=== PATIENT | male | born 1950 | race Caucasian/White ===

== ENCOUNTER → 2020-07-01 | Outpatient (CLI) | payer OTHER, MEDICARE ==
[~2020-07-01] MED LIST: ACCUPRIL PO; ADULT LOW DOSE81 MG PO; ATORVASTATIN CA40 MG PO; BYSTOLIC 5 MG5 M1 PO; CENTRUM SILVER1 EAC4 PO; FISH OIL 1,001000 M2 PO; KEFLEX500 MG PO; LOVASTATIN PO; PERCOCET 5-3251 EACH PO; VITAMIN B-12500 MCG PO; VITAMIN B-625 MG PO; VITAMIN D3400 UNI1 PO; VITAMINC500 PO; ZOFRAN ODT4 MG PO
== END ==
LOC: SJCVC 09:43
PROVIDERS: ATTEND Internal Medicine Cardiovascular Disease
DX: Z45.02 Encounter for adjustment and management of automatic implantable cardiac defibrillator (principal); I25.810 Atherosclerosis of coronary artery bypass graft(s) without angina pectoris; I42.9 Cardiomyopathy, unspecified; I10 Essential (primary) hypertension; E78.5 Hyperlipidemia, unspecified; Z95.1 Presence of aortocoronary bypass graft; Z95.810 Presence of automatic (implantable) cardiac defibrillator; Z79.899 Other long term (current) drug therapy

== ENCOUNTER → 2021-03-31 | Outpatient (CLI) | payer OTHER, MEDICARE | LOC: SJCVCIMAG 07:28 | PROVIDERS: ATTEND Internal Medicine Cardiovascular Disease | DX: I08.3 Combined rheumatic disorders of mitral, aortic and tricuspid valves (principal); I25.10 Atherosclerotic heart disease of native coronary artery without angina pectoris; I42.9 Cardiomyopathy, unspecified; E78.5 Hyperlipidemia, unspecified; E78.00 Pure hypercholesterolemia, unspecified; I50.22 Chronic systolic (congestive) heart failure; Z82.49 Family history of ischemic heart disease and other diseases of the circulatory system; Z95.0 Presence of cardiac pacemaker; Z95.1 Presence of aortocoronary bypass graft; Z79.82 Long term (current) use of aspirin; Z79.899 Other long term (current) drug therapy ==

== ENCOUNTER → 2021-05-26 | Outpatient (CLI) | payer OTHER, MEDICARE | LOC: SJCVC 12:44 | PROVIDERS: ATTEND Internal Medicine Cardiovascular Disease | DX: I25.5 Ischemic cardiomyopathy (principal); I11.0 Hypertensive heart disease with heart failure; I50.22 Chronic systolic (congestive) heart failure; I25.10 Atherosclerotic heart disease of native coronary artery without angina pectoris; I25.2 Old myocardial infarction; E78.5 Hyperlipidemia, unspecified; Z95.1 Presence of aortocoronary bypass graft; Z95.810 Presence of automatic (implantable) cardiac defibrillator; Z79.82 Long term (current) use of aspirin; Z79.899 Other long term (current) drug therapy; Z82.49 Family history of ischemic heart disease and other diseases of the circulatory system ==

== ENCOUNTER → 2021-06-21 | Outpatient (CLI) | payer OTHER, MEDICARE ==
[~2021-06-21] VITALS: Ht 182.9 cm; Wt 83.2 kg
[~2021-06-21] MED LIST changes: +B-COMPLEX-VITA1 EACH PO; +CALCIUM CARBON500 MG PO; +MELOXICAM15 MG PO
[2021-06-21 10:26] LABS: ABSOLUTE NEUTROPHILS 3.8 thou/uL (1.4-8.2); BASOPHILS 1.4 % (0.0-2.0); HEMATOCRIT 39.4 % (42.0-52.0); HEMOGLOBIN 13.5 gm/dL (14.0-18.0); LYMPHOCYTES 21.9 % (24.0-44.0); MCH 30.9 pg (26.0-34.0); MCHC 34.1 g/dL (28.0-37.0); MCV 90.5 fL (80.0-100.0); MONOCYTES 9.5 % (1.0-8.0); PLATELET COUNT 166 thou/uL (150-400); POLYS 62.2 % (36.0-66.0); RBC 4.36 mil/uL (4.50-6.00); RDW 13.6 % (10.5-14.5); WBC 6.1 thou/uL (4.0-11.0)
[2021-06-21 10:34] VITALS: BP 130/79
[2021-06-21 10:35] LABS: CALCIUM 8.9 mg/dL (8.5-10.1); POTASSIUM 4.1 mmol/L (3.5-5.1)
[2021-06-21 10:41] LABS: ALBUMIN 4.1 g/dL (3.4-5.0); APTT 26.7 Seconds (24.5-32.8); INR 1.07; PROTIME 11.6 Seconds (10.5-12.1); TOTAL PROTEIN 7.6 g/dL (6.4-8.2)
--- NOTE | 2021-07-13 08:44 | P ---
[facility] [place] [address] PROCEDURE REPORT Name: JESSEE OSHEA Room #: REG [facility].#: [id number] Admission: 06/21/21 Attend Phys: Pierre Sandoval MD Discharge: Date of : 52 Report #: [id number] THIS REPORT FOR: cc: Supa Betancourt MD, Neal A. MD Couchonnal, Luis F. MD ~ PROCEDURE PERFORMED: Generator exchange. PREOPERATIVE DIAGNOSIS: Bi-V ICD, TOY. POSTOPERATIVE DIAGNOSIS: BiV ICD, TOY. HISTORY: The patient is a 71-year-old male with history of ischemic cardiomyopathy, complete heart block, status post Medtronic BiV ICD implantation back in 2009, whose device has recently reached the elective replacement interval and he is here for ICD generator exchange. ANESTHESIA: The patient underwent MAC anesthesia with no anesthesia related complications. DESCRIPTION OF PROCEDURE: The patient underwent informed consent. We discussed the details of the procedure including the risks, which include but not limited to bleeding, infection, need for possible lead revisions. He understood these risks and is willing to proceed. He was brought to the EP laboratory in fasting and sedated state, prepped and draped in standard fashion. He received IV antibiotics prior to initiation of the procedure. Next, I injected lidocaine at the prior incision site. Incision was made. Chronic pocket was entered. The old device was disconnected. The leads were tested and found to be functioning normally. New device was connected to the leads. Tug test was performed. Then, the pocket was irrigated with vancomycin. The pocket was closed in 2 layers using 2-0 for the deep layer, 3-0 for the middle layer. Surgical glue was placed to outer skin layer. The patient awoke neurologically and hemodynamically intact. No complications and no significant bleeding. The explanted device was a Medtronic model number XXRY6J9, serial number [id number]. The newly implanted device is a Medtronic model number GUQL4C1, serial number [id number]. The atrial lead was a ____ 52 cm, serial number [id number], implanted on 03/08/2010. The other leads were also implanted at that time. The RV lead was 6947, serial number [id number] and the LV lead was a ____ 88 cm, serial number [id number]. The atrial lead demonstrated a P-wave of 0.6 millivolts, pacing impedance of 399 ohms, pacing threshold 0.5 volts at 0.4 milliseconds. The RV lead demonstrated pacing impedance of 342 ohms, normal high voltage impedances and pacing threshold 0.75 volts at 0.4 milliseconds. The LV lead demonstrated a pacing impedance of 532 ohms and a pacing threshold was 1.75 volts at 0.6 milliseconds. The device was programmed back to its nominal settings. [address] [address] PROCEDURE REPORT Name: JESSEE OSHEA Jalil Room #: REG [facility]#: [id number] Admission: 06/21/21 Attend Phys: Pierre Sandoval MD Discharge: Date of : 52 Report #: [id number] CONCLUSION: Successful Bi-V ICD generator exchange. <ELECTRONICALLY SIGNED> By: Pierre Sandoval MD 07/13/21 0844 [id number] Pierre Sandoval MD /nt
== END | disposition home or self-care (01) ==
LOC: CATH 08:50
PROVIDERS: ATTEND Internal Medicine Cardiovascular Disease
DX: Z45.02 Encounter for adjustment and management of automatic implantable cardiac defibrillator (principal); I44.2 Atrioventricular block, complete; I25.5 Ischemic cardiomyopathy; I11.0 Hypertensive heart disease with heart failure; I25.10 Atherosclerotic heart disease of native coronary artery without angina pectoris; I50.9 Heart failure, unspecified; E78.5 Hyperlipidemia, unspecified; Z98.890 Other specified postprocedural states; Z79.899 Other long term (current) drug therapy; Z79.01 Long term (current) use of anticoagulants; Z95.1 Presence of aortocoronary bypass graft; Z79.82 Long term (current) use of aspirin
CPT/HCPCS: 62110; 62900; 70005

== ENCOUNTER → 2022-01-04 | Outpatient (CLI) | payer OTHER, MEDICARE | LOC: SJCVC 11:18 | PROVIDERS: ATTEND Internal Medicine Cardiovascular Disease | DX: I47.2 Ventricular tachycardia (principal); E78.5 Hyperlipidemia, unspecified; I25.5 Ischemic cardiomyopathy; I25.10 Atherosclerotic heart disease of native coronary artery without angina pectoris; I65.29 Occlusion and stenosis of unspecified carotid artery; I10 Essential (primary) hypertension; Z95.0 Presence of cardiac pacemaker; Z79.82 Long term (current) use of aspirin; Z79.899 Other long term (current) drug therapy; Z82.49 Family history of ischemic heart disease and other diseases of the circulatory system ==